=== PATIENT | female | born 1970 | race Caucasian/White ===

== ENCOUNTER 2024-01-20 08:00 | Outpatient (CLI) | payer BC | END 2024-01-20 23:59 | disposition home or self-care (01) | LOC: LAB.S 08:00 | PROVIDERS: ATTEND Internal Medicine | DX: L08.89 Other specified local infections of the skin and subcutaneous tissue (principal) | CPT/HCPCS: 87070; 87205 ==

== ENCOUNTER 2024-01-30 08:00 | Outpatient (CLI) | payer BC ==
--- NOTE | 2024-01-30 12:13 | XRAY Report ---
PROCEDURE: Chest 2V INDICATIONS: CHEST WOUND TECHNIQUE: 2 views of the chest were acquired. COMPARISON: None. FINDINGS: Surgical changes and devices: Bilateral axillary clips. Lungs and pleura: No pleural effusions or pneumothorax. Lungs are clear. There is a nodular density which may potentially be in the left upper lobe or in the lateral soft tissues measuring 1.6 cm. Med iastinum: Mediastinal contours appear normal. Heart size is normal. Bones and chest wall: No suspicious bony lesions. Left mastectomy and possible right mastectomy. IMPRESSION: Left-sided mass, possibly pulmonary parenchymal, or possibly in the soft tissues. Consider nonemergent chest CT with contrast. Reviewed by: Miki Roper MD on 01/30/2024 12:12 PM PDT Approved by: Miki Roper MD on 01/30/2024 12:12 PM PDT Station ID: [id number]
== END 2024-01-30 23:59 | disposition home or self-care (01) ==
LOC: DI.S 08:00
PROVIDERS: ATTEND Emergency Medicine
DX: L59.8 Other specified disorders of the skin and subcutaneous tissue related to radiation (principal); L98.9 Disorder of the skin and subcutaneous tissue, unspecified; R93.89 Abnormal findings on diagnostic imaging of other specified body structures; Z85.3 Personal history of malignant neoplasm of breast

== ENCOUNTER 2024-02-12 15:22 | Emergency (ER) | payer BC ==
--- NOTE | 2024-02-12 15:48 | ED Physician Documentation ---
PD HPI SKIN - Stated complaint Stated Complaint: LT CHEST WOUND - Chief complaint Chief Complaint: Wound - Additional information Additional information: 53-year-old female who had a bilateral mastectomy due to left breast cancer in early 1999's, around 2004. Last radiation was in 2007. [place] all of [place] health care [place]. She went to the summer in November she was doing a lot of heavy lifting in December she started to notice a spontaneous wound at her left mastectomy scar. She went to walk-in clinic there was purulent drainage she was started on Keflex she says for the most part she does feel like her wound got better but then noticed recently the wound had come back and gotten worse with more purulent drainage. She went to walk-in clinic today and she had a fever of 102 Fahrenheit was quite tachycardic and hypotensive and they sent her to the emergency department for concerns of sepsis. Patient says when she takes a deep breath and there is pain to that left chest wound. PD PAST MEDICAL HISTORY - Past Medical History Past Medical History: Yes Other Past Medical History: Breast cancer - Past Surgical History Past Surgical History: Yes /[employer]: Hysterectomy - Present Medications Home Medications: Ambulatory Orders Medication Instructions Recorded Confirmed Doxycycline [Vibramycin] 100 mg PO BID 7 Days #14 tablet 02/12/24 Ondansetron Odt [Zofran Odt] 4 mg TL Q6H PRN #10 tablet 02/12/24 cephALEXin [Keflex] 500 mg PO Q6H 7 Days #28 cap 02/12/24 oxyCODONE [Roxicodone] 5 mg PO Q4-6H PRN #10 tablet 02/12/24 - Allergies Allergies/Adverse Reactions: Allergies Allergy/AdvReac Type Severity Reaction Status Date / Time No Known Drug Allergies Allergy Verified 02/12/24 15:25 - Social History Does the pt smoke?: No Smoking Status: Never smoker Does the pt drink ETOH?: No Does the pt have substance abuse?: No - Immunizations Immunizations are current?: Yes PD ED PE NORMAL - Vitals Vital signs reviewed: Yes - General General: Alert and oriented X 3, No acute distress, Well developed/nourished - Cardiac Cardiac: Other (Tacky) - Respiratory Respiratory: No respiratory distress, Clear bilaterally - Abdomen Abdomen: Normal bowel sounds, Non tender, No organomegaly - Derm Derm: Other (left chest wound to old masectomy scar measuring about 1cm, purulent drainage, erythema surrounding wound, no induration or palpable fluid collection. ) - Psych Psych: Normal mood, Normal affect Results - Vitals Vitals: Vital Signs - 24 hr 02/12/24 02/12/24 02/12/24 15:25 16:57 19:00 Temperature 37.1 C 37.2 C Heart Rate 115 H 110 H 99 Respiratory 16 20 18 Rate Blood Pressure 133/60 H 113/75 108/64 O2 Saturation 98 100 97 02/12/24 19:07 Temperature 37.2 C Heart Rate 95 Respiratory 18 Rate Blood Pressure 108/64 O2 Saturation 98 Oxygen O2 Source Room air - Labs Labs: Microbiology 02/12/24 16:19 Wound Culture - Preliminary Chest Laboratory Tests 02/12/24 02/12/24 02/12/24 15:41 15:41 15:41 WBC 17.2 H RBC 4.77 Hgb 14.3 Hct 43.5 MCV 91.2 MCH 30.0 MCHC 32.9 RDW 12.5 Plt Count 237 MPV 9.0 Neut # (Auto) 14.0 H Lymph # (Auto) 1.8 [place] # (Auto) 1.3 H Eos # (Auto) 0.0 Baso # (Auto) 0.0 Absolute Nucleated RBC 0.00 Nucleated RBC % 0.0 Sodium 135 Potassium 3.6 Chloride 100 L Carbon Dioxide 25 Anion Gap 10.0 BUN 9 Creatinine 0.6 Estimated GFR (MDRD) 104 Glucose 99 Lactic Acid 0.8 Calcium 9.8 Magnesium 1.7 Total Bilirubin 1.0 AST 13 ALT 9 L Alkaline Phosphatase 49 Total Protein 8.5 Albumin 4.6 Globulin 3.9 Albumin/Globulin Ratio 1.2 Lipase 18 - Rads (name of study) Chest CT with con Relevant Findings:: Final report received, EMP independent interpretation of test, Other (Prior left mastectomy no drainable collection in the surgical bed sclerosis and dystrophic changes of the ribs most likely due to posttreatment caused by radiation) PD Medical Decision Making - ED course ED course: 53 yo female presents to the ER from urgent care for fevers and chills. Patient does technically meet sepsis criteria given her elevated white count, fevers, chills and known source of infection., WBC 17.2, no electrolyte abnormalities, no concern for endorgan damage other labs are overall fairly unremarkable. Normal lactic acid. While patient has been here her vital signs remained stable initially tachycardia into the 1 teens after receiving 1 L of IV fluids and a dose of IV Rocephin heart rate significantly improved. We discussed the pros and cons of admit versus discharge and patient was offered hospitalization but her and her ultimately declined after much consideration and said that they would like to go home with the broaden antibiotics of Keflex and doxycycline as well as supportive care such as Zofran and oxycodone for the left chest pain. They as well as I were reassured after the CT scan did not show any obvious infection that was spreading to her ribs no obvious fluid collection that can be drainable and no other acute cardiopulmonary abnormalities. A Mepilex was placed over the patient's left chest wound and they were given 1 additional Mepilex to change in 3 to 4 days they were taught wound care and they were given very strict ER return precautions. Prescription of Keflex and doxycycline sent to patient's preferred pharmacy as well as Zofran and oxycodone. I am prescribing a short course of short-acting opioid pain medication for this patient. I have reviewed the patients POLITICAL DIRECTOR and no concerning findings were noted. I have discussed that the opioids are for short term therapy only, and will not be refilled from the ED. Patient and patient's were informed that we will call them in a couple days if she needs to come back to the ER for IV antibiotics they were also given very strict ER return precautions if patient appears to be declining patient's is very attentive to his and at this point time they feel capable going home with close monitoring Departure - Departure Disposition: 01 Home, Self Care Clinical Impression: Wound infection Cellulitis Qualifiers: Site of cellulitis: trunk Site of cellulitis of trunk: chest wall Qualified Code(s): L03.313 - Cellulitis of chest wall Instructions: Cellulitis Dc, ED Infec Skin Cellulitis Prescriptions: cephALEXin [Keflex] 500 mg PO Q6H 7 Days #28 cap oxyCODONE [Roxicodone] 5 mg PO Q4-6H PRN #10 tablet PRN Reason: Pain >8 Doxycycline [Vibramycin] 100 mg PO BID 7 Days #14 tablet Ondansetron Odt [Zofran Odt] 4 mg TL Q6H PRN #10 tablet PRN Reason: Nausea / Vomiting Comments: Thank you for trusting us with your care. We discussed the pros and cons of staying versus leaving we gave you 1 dose of IV Rocephin here in the emergency department you jackie ultimately decided to opt to discharge home which I think is totally fair. I have sent a prescription of doxycycline and Keflex to your preferred pharmacy which is a broader spectrum antibiotics any originally on please pick this up first thing in the morning and take them as prescribed for the next 7 days. For your pain I also sent a prescription of oxycodone and if you start develop any nausea I also sent a prescription of antinausea medications called Maria De Jesus. We will call you in 2 to 3 days with your culture results if you need to come back to the hospital for IV antibiotics or if you need to change oral antibiotics. Please have a very low threshold to come back to the ER for having any worsening symptoms. Change your Mepilex in 3 to 4 days make sure that when you change the Mepilex you do not put any ointment underneath the Mepilex that needs to be completely dry skin with a Mepilex. Please contact primary care provider for wound clinic referral and I would reach out to your medical team in [place] to let them know about today's visit to see if they have any specialty referrals that they are able to connect you with in the [facility]. I am prescribing a short course of narcotic pain medication for you. These are potentially dangerous and addictive medications that should be used carefully. These medications may constipate you. Take an njep-qef-qckdtpl stool softener (docusate) twice daily with plenty of water while taking these medications. If you go 24 hours without a bowel movement, take [id number] miralax, per package instructions. Do not drink or drive while taking these medications. If you received narcotic or sedating medications while in the emergency department, do not drive for 24 hours. Store this medication in a safe, secure place and out of reach of children. It is a violation of federal law to give or sell this medication to another person or to use in a manner other than prescribed. The ED will not refill narcotic prescriptions, including prescriptions lost or stolen. To dispose of unwanted medications: 1. [facility] at [address] in [place] has a medication drop box. They accept prescription medications (in pill form) Thursday through Thursday 9:00 a.m. to 5:00 p.m. 2. The [facility] accepts prescription medications (in pill form only) for disposal year round. Call for more information. 3. Contact the [facility] for the next [facility] sponsored prescription drug collection event. , [phone], or [phone]; Note that many narcotic pain relievers also contain Tylenol/acetaminophen. Please ensure that your total dose of acetaminophen from all sources does not exceed 3 g (3000 mg) per day. Forms: PCP List Discharge Date/Time: 02/12/24 19:42
[2024-02-12 15:52] LABS: BASOPHILS % (AUTO) 0.2 %; HCT - HEMATOCRIT 43.5 % (37.0-47.0); HGB - HEMOGLOBIN 14.3 g/dL (12.0-16.0); LYMPHOCYTES # (AUTO) 1.8 10^3/uL (1.5-3.5); LYMPHOCYTES % (AUTO) 10.5 %; MEAN CORPUSCULAR HGB CONC 32.9 g/dL (32.0-36.0); MEAN CORPUSCULAR VOLUME 91.2 fL (81.0-99.0); MONOCYTES # (AUTO) 1.3 10^3/uL (0.0-1.0); MONOCYTES % (AUTO) 7.7 %; NEUTROPHILS % (AUTO) 81.4 %; PLT - PLATELET COUNT 237 10^3/uL (130-450); RED BLOOD COUNT 4.77 10^6/uL (4.20-5.40); RED CELL DISTRIBUTION WIDTH 12.5 % (12.0-15.0); WHITE BLOOD COUNT 17.2 x10^3/uL (4.8-10.8)
[2024-02-12] MEDS: SODIUM CHLORIDE 0.9% 1,000 ML IV ONE (16:17)
[2024-02-12 16:25] LABS: MAGNESIUM 1.7 mg/dL (1.7-2.3)
[2024-02-12 16:31] LABS: ALBUMIN 4.6 g/dL (3.2-5.5); ALBUMIN/GLOBULIN RATIO 1.2 (1.0-2.2); CALCIUM 9.8 mg/dL (8.5-10.3); CREATININE 0.6 mg/dL (0.6-1.3); POTASSIUM 3.6 mmol/L (3.5-4.5); TOTAL PROTEIN 8.5 g/dL (6.4-8.9)
[2024-02-12] MEDS ORDERED: iohexoL-300 100 ML VIAL ONE (16:49)
--- NOTE | 2024-02-12 17:32 | CT Report ---
PROCEDURE: Chest W INDICATIONS: sepsis, left masectomy open wound, SOA CONTRAST: 100 mL Isovue-300 TECHNIQUE: After the administration of intravenous contrast, a CT scan of the chest was performed. Images were recorded and evaluated at appropriate window settings. Reformats: axial MIP of the chest, coronal and sagittal. For radiation dose reduction, the following was used: automated exposure control, adjustme nt of mA and/or kV according to patient size. COMPARISON: 01/30/2024 FINDINGS: Image quality: Diagnostic. Chest wall and lower neck: No thyroid nodule which requires sonographic follow up. No breast mass. No axillary or supraclavicular adenopathy by size. Left mastectomy. No drainable collection. Lungs and pleura: No consolidation. No pleural effusions. No pneumothorax. Anterior circulation of t he left lung, presumably post radiation change. Juxtapleural nodules with smooth margins, favoring be nign intrapulmonary lymph nodes. Mediastinum: Heart size is normal. No pericardial effusion. No large vessel abnormality. No mediastin al adenopathy by size criteria. Bones: Dystrophic changes of the anterior left fourth, fifth ribs. Mild sclerosis of the anterior sec ond through sixth ribs. Upper Abdomen: Unremarkable. IMPRESSION: Prior left mastectomy. No drainable collection in the surgical bed. Sclerosis and dystrophic changes of the ribs, probably posttreatment change, less likely osseous meta static disease. No large pulmonary embolus or acute cardiopulmonary process. Reviewed by: Markus Brock MD on 02/12/2024 5:30 PM PDT Approved by: Markus Brock MD on 02/12/2024 5:30 PM PDT Station ID: [id number]
[2024-02-12] MEDS: iohexoL-300 100 ML VIAL IVP ONE (17:51)
[2024-02-12] MEDS: cefTRIAXone 1 GM in SODIUM CHLORIDE 0.9% MINIBAG 100 ML IV STA (18:30)
[2024-02-12] MEDS: MUPIROCIN 2% OINT 1 GM TOP STA (19:00)
[2024-02-12] MEDS: oxyCODONE 5 MG TABLET PO STA (19:01)
[2024-02-12 19:12] VITALS: BP 108/64; O2SAT 98
== END 2024-02-12 19:42 | disposition home or self-care (01) ==
LOC: ED 15:22
DX: L03.313 Cellulitis of chest wall (principal); B96.5 Pseudomonas (aeruginosa) (mallei) (pseudomallei) as the cause of diseases classified elsewhere
CPT/HCPCS: 36415; 71260; 80053; 83605; 83690; 83735; 85025; 87040; 87070; 87181; 87205; 96365; 99284; A9270; Q9967